=== PATIENT | male | born 1940 | race Caucasian/White ===

== ENCOUNTER → 2020-03-22 09:58 | Outpatient (BNVA) | payer MEDICARE, SELFPAY | PROVIDERS: Family Provider Family Medicine; PCP Nurse Practitioner Family; Visit Provider Family Medicine | DX: I48.11 Longstanding persistent atrial fibrillation (principal); C61 Malignant neoplasm of prostate; R63.4 Abnormal weight loss; I70.0 Atherosclerosis of aorta | CPT/HCPCS: 71046; 80053; 84153; 85025 ==

== ENCOUNTER 2020-04-24 10:03 | Outpatient (CLI) | payer MEDICARE, SELFPAY ==
--- NOTE | 2020-04-24 10:00 | CT_ITS ---
WS: [id number] CT CHEST TECHNIQUE: Noncontrast CT of the chest with coronal and sagittal reformatted images. CLINICAL INFORMATION: R63.4 - Abnormal weight loss COMPARISON: None. DLP: 810.[address] scans at [facility] use at least one of these dose optimization techniques: automat ed exposure control; mA and/or kV adjustment per patient size (includes targeted exams where dose is matched to clinical indication); or iterative reconstruction. FINDINGS: Moderate chronic emphysematous changes. No acute pulmonary infiltrates. No focal consolidation or ple ural fluid. No mediastinal or hilar lymphadenopathy. Moderate aortic calcification. Coronary calcific ation. No axillary lymphadenopathy. Hypertrophic changes thoracic spine. Partially visualized left adrenal adenoma measuring [address]/CT chest wo con [id number] IMPRESSION: 1. Both lungs are well aerated. No acute pulmonary infiltrates. 2. Moderate chronic emphysematous changes. 3. No mediastinal or hilar lymphadenopathy. 4. Vascular calcification including coronary. 5. 12 mm left adrenal adenoma.
== END 2020-04-24 10:04 | disposition home or self-care (01) ==
LOC: RADWPI 10:09
PROVIDERS: PCP Nurse Practitioner Family; Visit Provider Family Medicine
DX: R63.4 Abnormal weight loss (principal); Z85.46 Personal history of malignant neoplasm of prostate; D35.02 Benign neoplasm of left adrenal gland; I25.10 Atherosclerotic heart disease of native coronary artery without angina pectoris
CPT/HCPCS: 71250